=== PATIENT | female | born 1995 | race African-American/Black ===

== ENCOUNTER 2018-03-15 00:32 | Emergency (ER) | payer MEDICAID ==
--- NOTE | 2018-03-15 00:55 | ED Physician Documentation ---
PD HPI ABD PAIN - Stated complaint Stated Complaint: ABD PAIN/NAUSEA - Chief complaint Chief Complaint: Abd Pain - History obtained from History obtained from: Patient - History of Present Illness Timing - onset: How many days ago (3-4 days of lower abd cramping pains, with nausea about the past week. Today with worse nausea and also vomiting. Symptoms similar to other times of early . Has had 4 miscarriages, so is concerned about that. Had positive test at home today.) Timing - duration: Days Timing - details: Gradual onset, Waxing and waning Quality: Cramping, Aching, Pain Location: Suprapubic, LLQ Radiation: Lower back Improved by: No: Eating Worsened by: No: Eating Associated symptoms: Nausea, Vomiting, Loss of appetite. No: Fever, Diarrhea, Constipation, Dysuria, Vaginal bleeding, Vaginal dc Similar symptoms before: Diagnosis (early pregnancies.) Recently seen: Not recently seen Review of Systems Constitutional: denies: Fever, Chills, Myalgias Nose: denies: Rhinorrhea / runny nose, Congestion Throat: denies: Sore throat Respiratory: denies: Cough GI: reports: Abdominal Pain, Nausea, Vomiting. denies: Abdominal Swelling, Constipation, Diarrhea, Bloody / black stool : reports: Missed period, Now EGA (5 weeks). denies: Dysuria, Frequency, Discharge Skin: denies: Rash, Lesions Neurologic: denies: Focal weakness, Numbness, Near syncope, Altered mental status PD PAST MEDICAL HISTORY - Past Medical History Past Medical History: No CLINICAL DATA MANAGEMENT DIRECTOR: Miscarriage(s) (4 prior ones) - Past Surgical History Past Surgical History: Yes /CLINICAL DATA MANAGEMENT DIRECTOR: section - Present Medications Home Medications: Ambulatory Orders Medication Instructions Recorded Confirmed Ondansetron Odt [Zofran] 4 mg TL Q6H PRN #15 tablet 03/15/18 - Allergies Allergies/Adverse Reactions: Allergies Allergy/AdvReac Type Severity Reaction Status Date / Time No Known Drug Allergies Allergy Verified 03/15/18 01:28 - Social History Does the pt smoke?: Yes Smoking Status: Current every day smoker Does the pt drink ETOH?: No Does the pt have substance abuse?: No - Immunizations Immunizations are current?: Yes - POLST Patient has POLST: No PD ED PE NORMAL - Vitals Vital signs reviewed: Yes - General General: Alert and oriented X 3, No acute distress, Well developed/nourished - Neck Neck: Supple, no meningeal sign, No adenopathy - Cardiac Cardiac: RRR, No murmur - Respiratory Respiratory: Clear bilaterally - Abdomen Abdomen: Normal bowel sounds, Soft, Non distended, No organomegaly, Other (some tenderness without guarding nor peritoneal signs in suprapubic and LLQ areas. ) - Female Female : Deferred - Rectal Rectal: Deferred - Back Back: No CVA TTP - Derm Derm: Normal color, Warm and dry - Extremities Extremities: No deformity, No tenderness to palpate, Normal ROM s pain - Neuro Neuro: Alert and oriented X 3, No motor deficit, Normal speech Results - Vitals Vitals: Vital Signs - 24 hr 03/15/18 03/15/18 00:41 02:50 Temperature 36.4 C L 36.5 C Heart Rate 82 77 Respiratory 16 16 Rate Blood Pressure 133/64 H 111/73 O2 Saturation 97 99 Oxygen O2 Source Room air - Labs Labs: Laboratory Tests 03/15/18 03/15/18 03/15/18 00:45 00:45 01:15 WBC 6.0 RBC 4.33 Hgb 13.2 Hct 38.7 MCV 89.4 MCH 30.5 MCHC 34.1 RDW 12.8 Plt Count 221 MPV 8.1 Neut # (Auto) 2.9 Lymph # (Auto) 2.4 [place] # (Auto) 0.4 Eos # (Auto) 0.2 Baso # (Auto) 0.0 Absolute Nucleated RBC 0.00 Nucleated RBC % 0.1 HCG, Quant Urine Color YELLOW Urine Clarity CLEAR Urine pH 6.0 Ur Specific [place] 1.025 1.025 Urine Protein NEGATIVE Urine Glucose (UA) NEGATIVE Urine Ketones TRACE Urine Occult Blood TRACE-INTA Urine Nitrite NEGATIVE Urine Bilirubin NEGATIVE Urine Urobilinogen 1 (NORMAL) Ur Leukocyte Esterase NEGATIVE Ur Microscopic Review NOT INDICATED Urine Culture Comments NOT INDICATED Urine HCG, Qual POSITIVE 03/15/18 01:15 WBC RBC Hgb Hct MCV MCH MCHC RDW Plt Count MPV Neut # (Auto) Lymph # (Auto) [place] # (Auto) Eos # (Auto) Baso # (Auto) Absolute Nucleated RBC Nucleated RBC % HCG, Quant 904.06 Urine Color Urine Clarity Urine pH Ur Specific [place] Urine Protein Urine Glucose (UA) Urine Ketones Urine Occult Blood Urine Nitrite Urine Bilirubin Urine Urobilinogen Ur Leukocyte Esterase Ur Microscopic Review Urine Culture Comments Urine HCG, Qual - Rads (name of study) OB U/S Radiology: Prelim report reviewed (no intrauterine nor extrauterine gestation seen. CL cyst on left. Trace free fluid. ) PD MEDICAL DECISION MAKING - ED course Complexity details: reviewed results (no gestation seen, but quant low at 900s, so could still be normal but too early to detect. She is new to area so no PMD as yet. Given number for CLINICAL DATA MANAGEMENT DIRECTOR/OB clinic but she might need to just return to ER to get repeated HCG and then U/S at proper timing. ), considered differential (early with lower abd pains; concern for position and condition of the . ), d/w patient - Sepsis Event Vital Signs: Vital Signs - 24 hr 03/15/18 03/15/18 00:41 02:50 Temperature 36.4 C L 36.5 C Heart Rate 82 77 Respiratory 16 16 Rate Blood Pressure 133/64 H 111/73 O2 Saturation 97 99 Oxygen O2 Source Room air Departure - Departure Disposition: 01 Home, Self Care Clinical Impression: Early stage of , Nausea, Pelvic cramping Condition: Stable Record reviewed to determine appropriate education?: Yes Instructions: ED Abdominal Pain Rule Out Ectopic Follow-Up: [facility] [Provider Group] Prescriptions: Ondansetron Odt [Zofran] 4 mg TL Q6H PRN #15 tablet PRN Reason: Nausea / Vomiting Comments: Drink lots of fluids. Ondansetron if needed for nausea. Tylenol if needed for pains. Follow-up with [facility] office in several days, call tomorrow for an appointment. Return to the ER if worsening symptoms or if unable to get a follow-up with ST[facility] PREPAR[facility] TECHNICIAN within 4-5 days. Discharge Date/Time: 03/15/18 03:27
[2018-03-15 00:58] LABS: BILIRUBIN,URINE NEGATIVE (NEGATIVE); GLUCOSE, URINE (UA) NEGATIVE (NEGATIVE); KETONES,URINE (UA) TRACE mg/dL (NEGATIVE); LEUKOCYTE ESTERASE, URINE NEGATIVE (NEGATIVE); NITRITE,URINE NEGATIVE (NEGATIVE); OCCULT BLOOD,URINE TRACE-INTA (NEGATIVE); PROTEIN,URINE NEGATIVE (NEGATIVE); UROBILINOGEN,URINE 1 (NORMAL) E.U./dL (NORMAL)
[2018-03-15 00:59] LABS: CLARITY,URINE CLEAR (CLEAR); HCG UR QUAL POSITIVE
[2018-03-15] MEDS ORDERED: SODIUM CHLORIDE 0.9% 1,000 ML IV ONE (01:10)
[2018-03-15] MEDS ORDERED: ONDANSETRON 4 MG/2 ML VIAL IVP STA (01:10)
[2018-03-15 01:30] LABS: BASOPHILS % (AUTO) 0.6 %; EOSINOPHILS # (AUTO) 0.2 10^3/uL (0.0-0.7); EOSINOPHILS % (AUTO) 3.3 %; HGB - HEMOGLOBIN 13.2 g/dL (12.0-16.0); LYMPHOCYTES # (AUTO) 2.4 10^3/uL (1.5-3.5); LYMPHOCYTES % (AUTO) 40.8 %; MEAN CORPUSCULAR HEMOGLOBIN 30.5 pg (27.0-31.0); MEAN CORPUSCULAR HGB CONC 34.1 g/dL (32.0-36.0); MEAN CORPUSCULAR VOLUME 89.4 fL (81.0-99.0); MEAN PLATELET VOLUME 8.1 fL (7.9-10.8); MONOCYTES # (AUTO) 0.4 10^3/uL (0.0-1.0); MONOCYTES % (AUTO) 6.6 %; NEUTROPHILS # (AUTO) 2.9 10^3/uL (1.5-6.6); NEUTROPHILS % (AUTO) 48.7 %; PLT - PLATELET COUNT 221 10^3/uL (130-450); RED BLOOD COUNT 4.33 10^6/uL (4.20-5.40); RED CELL DISTRIBUTION WIDTH 12.8 % (12.0-15.0)
--- NOTE | 2018-03-15 02:53 | Ultrasound Report ---
Procedure Date: 03/15/2018 Accession Number: [id number] / [id number] Procedure: US - OB First Trimester CPT Code: FULL RESULT: EXAM: FIRST TRIMESTER OBSTETRIC ULTRASOUND (Less than 11 weeks) EXAM DATE: 03/15/2018 01:37 AM. CLINICAL HISTORY: Lower abd pain/early . LMP: 02/06/2018. COMPARISONS: None. TECHNIQUE: Transabdominal and transvaginal ultrasound examination with static image documentation. CLINICAL DATES: EGA 5 weeks 2 days with JOHNNIE 11/13/2018 based on LMP. ASSESSMENT: Gestational Sac: Not seen. Embryo: Not seen. Cardiac activity: Not seen. Yolk sac: Not seen. Amniotic fluid: Not seen. Early placenta: Not seen. Other: None. MATERNAL STRUCTURES: Uterus: Anteverted. Unremarkable. Cervix: Closed. Right Ovary/Adnexa: Unremarkable. The ovary measures 3.5 x 1.7 x 2.3 cm, volume 7.2 cc. Left Ovary/Adnexa: Corpus luteum measuring 2.3 x 2.4 x 1.8 cm. The ovary measures 2.4 x 2.1 x 2.6 cm, volume 6.9 cc. Free Fluid: Small amount. Other: None. IMPRESSION: 1. No intrauterine or extrauterine gestation identified. 2. Corpus luteum on the left ovary. 3. Small amount of free fluid. 4. Recommend correlation with quantitative serum beta hCG level. KLEVER
[2018-03-15 03:05] VITALS: BP 111/73
[2018-03-15] MEDS ORDERED: ONDANSETRON ODT 4 MG Prepack 2 TL PRN (03:20)
== END 2018-03-15 03:27 | disposition home or self-care (01) ==
LOC: ED 00:32
DX: O26.891 Other specified pregnancy related conditions, first trimester (principal); R10.2 Pelvic and perineal pain; R11.0 Nausea; O99.331 Smoking (tobacco) complicating pregnancy, first trimester; Z3A.01 Less than 8 weeks gestation of pregnancy
CPT/HCPCS: 36415; 76801; 76817; 81001; 81003; 81025; 84144; 84702; 84703; 85025; 87086; 96361; 96374; 99283

== ENCOUNTER 2018-03-18 23:59 | Emergency (ER) | payer MEDICAID ==
--- NOTE | 2018-03-19 00:13 | ED Physician Documentation ---
History of Present Illness - Stated complaint Stated Complaint: ABD PAIN,6W - Chief complaint Chief Complaint: Abd Pain - Additonal information Additional information: 22-year-old female presents to the emergency department with complaints of increasing lower abdominal cramping. The patient reports being and recently had an ultrasound which did not show any intrauterine secondary to a very low beta hCG. The patient reports generalized lower abdominal cramping and denies any vaginal bleeding, vaginal discharge or dysuria. The patient also reports feeling nauseated. Symptoms are described as moderate. The patient denies any focal area of pain. No other associated symptoms. No relieving factors Review of Systems Constitutional: denies: Fever, Chills Eyes: denies: Discharge Ears: denies: Ear pain Nose: denies: Rhinorrhea / runny nose Throat: denies: Sore throat Cardiac: denies: Chest pain / pressure Respiratory: denies: Dyspnea GI: reports: Abdominal Pain : denies: Dysuria, Hematuria, Vaginal bleeding Skin: denies: Rash Musculoskeletal: denies: Neck pain Neurologic: denies: Generalized weakness Immunocompromised: denies: Chemotherapy PD PAST MEDICAL HISTORY - Past Medical History COSTUME DIRECTOR: Miscarriage(s) (4 prior ones) - Past Surgical History Past Surgical History: Yes /COSTUME DIRECTOR: section - Present Medications Home Medications: Ambulatory Orders Medication Instructions Recorded Confirmed Ondansetron Odt [Zofran] 4 mg TL Q6H PRN #15 tablet 03/15/18 03/19/18 Metoclopramide [Reglan] 10 mg PO Q6H PRN #30 tablet 03/19/18 - Allergies Allergies/Adverse Reactions: Allergies Allergy/AdvReac Type Severity Reaction Status Date / Time No Known Drug Allergies Allergy Verified 03/19/18 00:07 - Social History Does the pt smoke?: Yes Smoking Status: Current every day smoker Does the pt drink ETOH?: No Does the pt have substance abuse?: No - Immunizations Immunizations are current?: Yes - POLST Patient has POLST: No PD ED PE NORMAL - General General: Alert and oriented X 3, No acute distress - HEENT HEENT: Atraumatic, PERRL, EOMI, Ears normal - Neck Neck: Supple, no meningeal sign - Cardiac Cardiac: RRR - Respiratory Respiratory: No respiratory distress - Abdomen Abdomen: Soft, Non distended. No: Non tender (The patient has generalized lower abdominal tenderness, there is no rebound or peritoneal signs) - Back Back: No CVA TTP - Derm Derm: Normal color - Extremities Extremities: No deformity - Neuro Neuro: Alert and oriented X 3, Normal speech - Psych Psych: Normal mood Results - Vitals Vitals: Vital Signs - 24 hr 03/19/18 00:05 Temperature 37.2 C Heart Rate 82 Respiratory 18 Rate Blood Pressure 121/89 H O2 Saturation 98 Oxygen O2 Source Room air - Labs Labs: Laboratory Tests 03/19/18 03/19/18 03/19/18 00:23 00:23 00:23 WBC 7.5 RBC 4.33 Hgb 13.1 Hct 38.0 MCV 87.9 MCH 30.3 MCHC 34.5 RDW 12.8 Plt Count 242 MPV 7.8 L Neut # (Auto) 3.5 Lymph # (Auto) 3.0 [place] # (Auto) 0.5 Eos # (Auto) 0.4 Baso # (Auto) 0.1 Absolute Nucleated RBC 0.00 Nucleated RBC % 0.0 Sodium 132 L Potassium 3.9 Chloride 103 Carbon Dioxide 22 Anion Gap 7.0 BUN 12 Creatinine 0.6 Estimated GFR (MDRD) 149 Glucose 91 Calcium 9.5 Total Bilirubin 0.9 AST 22 ALT 21 Alkaline Phosphatase 132 H Total Protein 7.8 Albumin 4.1 Globulin 3.7 Albumin/Globulin Ratio 1.1 Lipase 26 HCG, Quant 5490.00 Urine Color Urine Clarity Urine pH Ur Specific [place] Urine Protein Urine Glucose (UA) Urine Ketones Urine Occult Blood Urine Nitrite Urine Bilirubin Urine Urobilinogen Ur Leukocyte Esterase Ur Microscopic Review Urine Culture Comments Blood Type Antibody Screen 03/19/18 03/19/18 00:23 01:55 WBC RBC Hgb Hct MCV MCH MCHC RDW Plt Count MPV Neut # (Auto) Lymph # (Auto) [place] # (Auto) Eos # (Auto) Baso # (Auto) Absolute Nucleated RBC Nucleated RBC % Sodium Potassium Chloride Carbon Dioxide Anion Gap BUN Creatinine Estimated GFR (MDRD) Glucose Calcium Total Bilirubin AST ALT Alkaline Phosphatase Total Protein Albumin Globulin Albumin/Globulin Ratio Lipase HCG, Quant Urine Color YELLOW Urine Clarity CLEAR Urine pH 6.0 Ur Specific [place] 1.025 Urine Protein NEGATIVE Urine Glucose (UA) NEGATIVE Urine Ketones NEGATIVE Urine Occult Blood TRACE-LYSE Urine Nitrite NEGATIVE Urine Bilirubin NEGATIVE Urine Urobilinogen 0.2 (NORMAL) Ur Leukocyte Esterase NEGATIVE Ur Microscopic Review NOT INDICATED Urine Culture Comments NOT INDICATED Blood Type O POSITIVE Antibody Screen NEGATIVE - Rads (name of study) Ultrasound first trimester Radiology: Final report received ( IMPRESSION: 1. Single intrauterine gestational sac at EGA 4 weeks 2 days with JOHNNIE 11/24/2018 based on mean sac diameter, which is discordant with clinical dates. Embryo and yolk sac not seen. 2. Assigned dating is JOHNNIE 11/24/2018 based on current US.3. Small hemorrhage adjacent to the gestational sac. 4. Corpus luteum on the left ovary. Small amount of free fluid. 5. Recommend sonographic follow-up to confirm viable gestation.) PD MEDICAL DECISION MAKING - ED course ED course: The findings were discussed with the patient, on reevaluation the patient rests comfortably and appears appropriate for discharge home. I explained the importance of close follow-up with [facility] for a repeat ultrasound to assess the viability. The patient understands and agrees. I discussed warning signs and recommended returning to the emergency department immediately for worsening or any concerns. I also recommended pelvic rest secondary to the small hemorrhage adjacent to the gestational sac. - Sepsis Event Vital Signs: Vital Signs - 24 hr 03/19/18 00:05 Temperature 37.2 C Heart Rate 82 Respiratory 18 Rate Blood Pressure 121/89 H O2 Saturation 98 Oxygen O2 Source Room air Departure - Departure Disposition: 01 Home, Self Care Clinical Impression: Abdominal pain affecting Ovarian cyst Qualifiers: Laterality: unspecified laterality Qualified Code(s): N83.209 - Unspecified ovarian cyst, unspecified side Condition: Good Instructions: Cysts Ovarian, Preg 1st Trimester Follow-Up: Jamar Bassett MD [Provider Admit Priv/Credential] - Greg Mathews MD [Provider Admit Priv/Credential] - Prescriptions: Metoclopramide [Reglan] 10 mg PO Q6H PRN #30 tablet PRN Reason: Nausea / Vomiting Comments: Please follow-up with [facility] in 1 week for recheck. You will need a follow-up ultrasound to further access your . Please return to the emergency department immediately for worsening symptoms or any concerns
[2018-03-19 00:30] LABS: BASOPHILS # (AUTO) 0.1 10^3/uL (0.0-0.1); BASOPHILS % (AUTO) 1.1 %; EOSINOPHILS # (AUTO) 0.4 10^3/uL (0.0-0.7); EOSINOPHILS % (AUTO) 5.7 %; HGB - HEMOGLOBIN 13.1 g/dL (12.0-16.0); LYMPHOCYTES % (AUTO) 39.3 %; MEAN CORPUSCULAR HEMOGLOBIN 30.3 pg (27.0-31.0); MEAN CORPUSCULAR HGB CONC 34.5 g/dL (32.0-36.0); MEAN CORPUSCULAR VOLUME 87.9 fL (81.0-99.0); MEAN PLATELET VOLUME 7.8 fL (7.9-10.8); MONOCYTES # (AUTO) 0.5 10^3/uL (0.0-1.0); MONOCYTES % (AUTO) 6.7 %; NEUTROPHILS # (AUTO) 3.5 10^3/uL (1.5-6.6); NEUTROPHILS % (AUTO) 47.2 %; PLT - PLATELET COUNT 242 10^3/uL (130-450); RED BLOOD COUNT 4.33 10^6/uL (4.20-5.40); RED CELL DISTRIBUTION WIDTH 12.8 % (12.0-15.0); WHITE BLOOD COUNT 7.5 x10^3/uL (4.8-10.8)
[2018-03-19 00:56] LABS: ALBUMIN 4.1 g/dL (3.2-5.5); ALBUMIN/GLOBULIN RATIO 1.1 (1.0-2.2); BILIRUBIN,TOTAL 0.9 mg/dL (0.2-1.0); CALCIUM 9.5 mg/dL (8.5-10.3); CREATININE 0.6 mg/dL (0.4-1.0); TOTAL PROTEIN 7.8 g/dL (6.7-8.2)
--- NOTE | 2018-03-19 02:00 | Ultrasound Report ---
Procedure Date: 03/19/2018 Accession Number: [id number] / [id number] Procedure: US - OB First Trimester CPT Code: FULL RESULT: EXAM: FIRST TRIMESTER OBSTETRIC ULTRASOUND (Less than 11 weeks) EXAM DATE: 03/19/2018 12:40 AM. CLINICAL HISTORY: with pain. LMP: 02/06/2018. COMPARISONS: OB FIRST TRIMESTER 03/15/2018 1:37 AM. TECHNIQUE: Transabdominal and transvaginal ultrasound examination with static image documentation. CLINICAL DATES: EGA 5 weeks 5 days with JOHNNIE 11/13/2018 based on LMP. ASSESSMENT: Gestational Sac: Single intrauterine. Mean gestational sac diameter: 4.5 mm = 4 weeks 2 days. Embryo: CRL not seen. Cardiac activity: Not seen. Yolk sac: Not seen. Amniotic fluid: Not accurately assessed at this gestational age. Early placenta: Not visible at this gestational age. Other: Small hemorrhage adjacent to the gestational sac measuring 1.4 x 0.5 cm. MATERNAL STRUCTURES: Uterus: Anteverted/Retroverted. Unremarkable. Cervix: Closed. Right Ovary/Adnexa: Unremarkable. The ovary measures 3.1 x 1.6 x 2.1 cm, volume 5.3 cc. Left Ovary/Adnexa: Corpus luteum measuring 2.6 x 2.0 x 2.2 cm. The ovary measures 3.8 x 3.1 x 2.4 cm, volume 15 cc. Free Fluid: Small amount. Other: None. IMPRESSION: 1. Single intrauterine gestational sac at EGA 4 weeks 2 days with JOHNNIE 11/24/2018 based on mean sac diameter, which is discordant with clinical dates. Embryo and yolk sac not seen. 2. Assigned dating is JOHNNIE 11/24/2018 based on current US. 3. Small hemorrhage adjacent to the gestational sac. 4. Corpus luteum on the left ovary. Small amount of free fluid. 5. Recommend sonographic follow-up to confirm viable gestation. RADIA
[2018-03-19 02:03] LABS: BILIRUBIN,URINE NEGATIVE (NEGATIVE); GLUCOSE, URINE (UA) NEGATIVE (NEGATIVE); KETONES,URINE (UA) NEGATIVE (NEGATIVE); LEUKOCYTE ESTERASE, URINE NEGATIVE (NEGATIVE); NITRITE,URINE NEGATIVE (NEGATIVE); OCCULT BLOOD,URINE TRACE-LYSE (NEGATIVE); PROTEIN,URINE NEGATIVE (NEGATIVE); UROBILINOGEN,URINE 0.2 (NORMAL) E.U./dL (NORMAL)
[2018-03-19 02:06] LABS: CLARITY,URINE CLEAR (CLEAR)
[2018-03-19 02:26] VITALS: BP 119/74
== END 2018-03-19 02:25 | disposition home or self-care (01) ==
LOC: ED 23:59
DX: O26.891 Other specified pregnancy related conditions, first trimester (principal); R10.30 Lower abdominal pain, unspecified; O34.81 Maternal care for other abnormalities of pelvic organs, first trimester; N83.209 Unspecified ovarian cyst, unspecified side; O99.331 Smoking (tobacco) complicating pregnancy, first trimester; Z3A.01 Less than 8 weeks gestation of pregnancy
CPT/HCPCS: 36415; 76801; 76817; 80053; 81001; 81003; 83690; 84702; 85025; 86850; 86900; 86901; 87086; 99283

== ENCOUNTER 2018-03-26 16:07 | Outpatient (CLI) | payer MEDICAID | END 2018-03-26 16:08 | disposition home or self-care (01) | LOC: LAB 16:07 | PROVIDERS: ATTEND Obstetrics & Gynecology | DX: Z32.01 Encounter for pregnancy test, result positive (principal) | CPT/HCPCS: 36415; 84702 ==

== ENCOUNTER 2018-03-28 15:03 | Outpatient (CLI) | payer MEDICAID | END 2018-03-28 15:04 | disposition home or self-care (01) | LOC: LAB.N 15:03 | PROVIDERS: ATTEND Obstetrics & Gynecology | DX: Z32.01 Encounter for pregnancy test, result positive (principal) | CPT/HCPCS: 36415; 84702 ==

== ENCOUNTER 2018-04-04 22:32 | Emergency (ER) | payer MEDICAID ==
[2018-04-04 22:58] LABS: BASOPHILS % (AUTO) 0.4 %; EOSINOPHILS # (AUTO) 0.2 10^3/uL (0.0-0.7); EOSINOPHILS % (AUTO) 2.2 %; HGB - HEMOGLOBIN 12.5 g/dL (12.0-16.0); LYMPHOCYTES # (AUTO) 2.3 10^3/uL (1.5-3.5); LYMPHOCYTES % (AUTO) 28.7 %; MEAN CORPUSCULAR HEMOGLOBIN 30.7 pg (27.0-31.0); MEAN CORPUSCULAR HGB CONC 34.7 g/dL (32.0-36.0); MEAN CORPUSCULAR VOLUME 88.7 fL (81.0-99.0); MEAN PLATELET VOLUME 7.8 fL (7.9-10.8); MONOCYTES # (AUTO) 0.5 10^3/uL (0.0-1.0); MONOCYTES % (AUTO) 5.9 %; NEUTROPHILS % (AUTO) 62.8 %; PLT - PLATELET COUNT 227 10^3/uL (130-450); RED BLOOD COUNT 4.07 10^6/uL (4.20-5.40); RED CELL DISTRIBUTION WIDTH 12.5 % (12.0-15.0); WHITE BLOOD COUNT 7.9 x10^3/uL (4.8-10.8)
[2018-04-04 23:09] LABS: ALBUMIN/GLOBULIN RATIO 1.1 (1.0-2.2); BILIRUBIN,TOTAL 0.6 mg/dL (0.2-1.0); CREATININE 0.6 mg/dL (0.4-1.0); TOTAL PROTEIN 7.7 g/dL (6.7-8.2)
--- NOTE | 2018-04-05 00:56 | Ultrasound Report ---
Reason: preg vag bleeding Procedure Date: 04/04/2018 Accession Number: [id number] / [id number] Procedure: US - OB First Trimester CPT Code: FULL RESULT: EXAM: FIRST TRIMESTER OBSTETRIC ULTRASOUND (Less than 11 weeks) EXAM DATE: 04/05/2018 12:10 AM. CLINICAL HISTORY: Preg vag bleeding. LMP: 02/06/2018. COMPARISONS: 03/19/2018. TECHNIQUE: Transabdominal ultrasound examination with static image documentation. CLINICAL DATES: EGA 8 weeks 2 days with JOHNNIE 11/13/2018 based on LMP. ASSESSMENT: Gestational Sac: Single intrauterine. Mean gestational sac diameter: 24 mm = 7 weeks 0 days. Embryo: CRL (crown-rump length) 10.2 mm = 7 weeks 1 day. Cardiac activity: 137 beats per minute. Yolk sac: 4 mm. Amniotic fluid: Not accurately assessed at this gestational age. Early placenta: Not visible at this gestational age. Other: No perigestational fluid collection demonstrated. MATERNAL STRUCTURES: Uterus: Anteverted. Unremarkable. Cervix: Closed. Right Ovary/Adnexa: Unremarkable. The ovary measures 3.6 x 3.5 x 2.1 cm, volume 14 cc. Left Ovary/Adnexa: Corpus luteum measuring 2.6 cm. The ovary measures 3.5 x 3.4 x 2.5 cm, volume 16 cc. Free Fluid: None. Other: None. IMPRESSION: 1. Single viable intrauterine at EGA 7 weeks 1 day with JOHNNIE 11/21/2018 based on crown-rump length, which is 8 days smaller than expected by clinical dates. 2. Assigned dating is JOHNNIE 11/21/2018 based on current ultrasound. 3. No perigestational hemorrhage. RADIA
[2018-04-05 01:14] LABS: BILIRUBIN,URINE NEGATIVE (NEGATIVE); GLUCOSE, URINE (UA) NEGATIVE (NEGATIVE); KETONES,URINE (UA) NEGATIVE (NEGATIVE); LEUKOCYTE ESTERASE, URINE NEGATIVE (NEGATIVE); NITRITE,URINE NEGATIVE (NEGATIVE); OCCULT BLOOD,URINE LARGE (NEGATIVE); PROTEIN,URINE NEGATIVE (NEGATIVE); UROBILINOGEN,URINE 0.2 (NORMAL) E.U./dL (NORMAL)
[2018-04-05 01:20] LABS: CLARITY,URINE CLEAR (CLEAR)
[2018-04-05 01:21] LABS: HCG UR QUAL POSITIVE
[2018-04-05 01:25] LABS: BACTERIA,URINE Few /HPF (None Seen); RBC,URINE 0-5 /HPF (0-5); SQUAMOUS EPITHELIAL CELL,UR MOD Squamous (<= Few)
--- NOTE | 2018-04-05 01:33 | ED Physician Documentation ---
PD HPI FEMALE - Stated complaint Stated Complaint: CRAMPING/BLEEDING LMP 02/06/18 - Chief complaint Chief Complaint: Abd Pain - History obtained from History obtained from: Patient - History of Present Illness Timing - onset: Today Timing - details: Abrupt onset, Now resolved Associated symptoms: Vaginal bleeding Contributing factors: OB-VICE PRESIDENT OF CONTRACTS History: G (7), P (2) Similar symptoms before: Work up / diagnostics Recently seen: Not recently seen - Additional information Additional information: Patient is a approximately 7 weeks by dates who is presenting to the emergency department for vaginal bleeding. patient's symptoms started earlier today. she filled a pad at that time. the bleeding has slowed down but due to the prior miscarriages patient was worried. Patient denies any trauma but reports that the only thing that was different was that she was cleaning her house yesterday. Review of Systems Ten Systems: 10 systems reviewed and negative : reports: Vaginal bleeding. denies: Dysuria, Frequency PD PAST MEDICAL HISTORY - Past Medical History Past Medical History: Yes VICE PRESIDENT OF CONTRACTS: Miscarriage(s) - Past Surgical History Past Surgical History: Yes /VICE PRESIDENT OF CONTRACTS: section - Present Medications Home Medications: Ambulatory Orders Medication Instructions Recorded Confirmed Ondansetron Odt [Zofran] 4 mg TL Q6H PRN #15 tablet 03/15/18 03/19/18 Metoclopramide [Reglan] 10 mg PO Q6H PRN #30 tablet 03/19/18 - Allergies Allergies/Adverse Reactions: Allergies Allergy/AdvReac Type Severity Reaction Status Date / Time No Known Drug Allergies Allergy Verified 04/04/18 22:44 - Social History Does the pt smoke?: Yes Smoking Status: Current every day smoker Does the pt drink ETOH?: No Does the pt have substance abuse?: No - Immunizations Immunizations are current?: Yes - POLST Patient has POLST: No PD ED PE NORMAL - Vitals Vital signs reviewed: Yes - General General: Alert and oriented X 3 - HEENT HEENT: Atraumatic - Cardiac Cardiac: RRR - Respiratory Respiratory: No respiratory distress - Abdomen Abdomen: Soft - Derm Derm: Normal color, Warm and dry - Extremities Extremities: No deformity - Neuro Neuro: Alert and oriented X 3 Eye Opening: Spontaneous PD ED PE EXPANDED - General General: Alert, Anxious Results - Vitals Vitals: Vital Signs - 24 hr 04/04/18 22:41 Temperature 36.8 C Heart Rate 82 Respiratory 18 Rate Blood Pressure 134/81 H O2 Saturation 100 Oxygen O2 Source Room air - Labs Labs: Laboratory Tests 04/04/18 04/04/18 04/04/18 22:45 22:54 22:54 WBC 7.9 RBC 4.07 L Hgb 12.5 Hct 36.1 L MCV 88.7 MCH 30.7 MCHC 34.7 RDW 12.5 Plt Count 227 MPV 7.8 L Neut # (Auto) 5.0 Lymph # (Auto) 2.3 [place] # (Auto) 0.5 Eos # (Auto) 0.2 Baso # (Auto) 0.0 Absolute Nucleated RBC 0.00 Nucleated RBC % 0.0 Sodium 137 Potassium 3.9 Chloride 106 Carbon Dioxide 24 Anion Gap 7.0 BUN 12 Creatinine 0.6 Estimated GFR (MDRD) 149 Glucose 97 Calcium 9.0 Total Bilirubin 0.6 AST 15 ALT 14 Alkaline Phosphatase 116 Total Protein 7.7 Albumin 4.0 Globulin 3.7 Albumin/Globulin Ratio 1.1 Lipase 29 HCG, Quant 22347.00 Urine Color Urine Clarity Urine pH Ur Specific [place] Urine Protein Urine Glucose (UA) Urine Ketones Urine Occult Blood Urine Nitrite Urine Bilirubin Urine Urobilinogen Ur Leukocyte Esterase Urine RBC Urine WBC Ur Squamous Epith Cells Urine Bacteria Ur Microscopic Review Urine Culture Comments Urine HCG, Qual Blood Type 04/04/18 04/05/18 04/05/18 23:40 00:00 00:00 WBC RBC Hgb Hct MCV MCH MCHC RDW Plt Count MPV Neut # (Auto) Lymph # (Auto) [place] # (Auto) Eos # (Auto) Baso # (Auto) Absolute Nucleated RBC Nucleated RBC % Sodium Potassium Chloride Carbon Dioxide Anion Gap BUN Creatinine Estimated GFR (MDRD) Glucose Calcium Total Bilirubin AST ALT Alkaline Phosphatase Total Protein Albumin Globulin Albumin/Globulin Ratio Lipase HCG, Quant Urine Color YELLOW Urine Clarity CLEAR Urine pH 6.0 Ur Specific [place] >=1.030 H >1.030 Urine Protein NEGATIVE Urine Glucose (UA) NEGATIVE Urine Ketones NEGATIVE Urine Occult Blood LARGE H Urine Nitrite NEGATIVE Urine Bilirubin NEGATIVE Urine Urobilinogen 0.2 (NORMAL) Ur Leukocyte Esterase NEGATIVE Urine RBC 0-5 Urine WBC 0-3 Ur Squamous Epith Cells MOD Squamous H Urine Bacteria Few Ur Microscopic Review INDICATED Urine Culture Comments NOT INDICATED Urine HCG, Qual POSITIVE Blood Type O POSITIVE - Rads (name of study) pelvic ultrasound Radiology: Final report received (viable iup approximately 7 weeks) PD MEDICAL DECISION MAKING - ED course Complexity details: reviewed old records, reviewed results, re-evaluated patient , considered differential, d/w patient, d/w family ED course: Patient was seen and examined at bedside. labs were drawn and imaging was ordered. When patient returned from ultrasound the results were reviewed. there was a viable IUP. Patient's blood type was Rh positive. Patient was given detailed discharge and follow up instructions and was stable for outpatient follow up. - Sepsis Event Vital Signs: Vital Signs - 24 hr 04/04/18 22:41 Temperature 36.8 C Heart Rate 82 Respiratory 18 Rate Blood Pressure 134/81 H O2 Saturation 100 Oxygen O2 Source Room air Departure - Departure Disposition: 01 Home, Self Care Clinical Impression: Threatened in first trimester Condition: Good Instructions: ED Miscarriage Poss Follow-Up: primary,care provider [Other] - Within 1 week Comments: Your diagnostics today were within normal limits. there was a viable IUP with an expected due date of 11/21/18. You should follow up with your ob tomorrow for further evaluation. You should return to the emergency department for severe bleeding. You should avoid any heavy lifting or strenuous activity.
[2018-04-05 01:34] VITALS: BP 120/86
== END 2018-04-05 01:37 | disposition home or self-care (01) ==
LOC: ED 22:32
DX: O20.0 Threatened abortion (principal); O99.331 Smoking (tobacco) complicating pregnancy, first trimester; Z3A.01 Less than 8 weeks gestation of pregnancy
CPT/HCPCS: 36415; 76801; 80053; 81001; 81003; 81025; 83690; 84702; 85025; 86900; 86901; 87086; 99283

== ENCOUNTER 2018-04-08 12:18 | Outpatient (CLI) | payer MEDICAID ==
--- NOTE | 2018-04-08 17:08 | Ultrasound Report ---
Reason: ENTR FOR TEST, RESULT POSITIVE Procedure Date: 04/08/2018 Accession Number: [id number] / [id number] Procedure: US - OB First Trimester CPT Code: FULL RESULT: EXAM: FIRST TRIMESTER OBSTETRIC ULTRASOUND (Less than 11 weeks) EXAM DATE: 04/08/2018 01:33 PM. CLINICAL HISTORY: dating and viability. History of multiple miscarriages. Excessive cramping. LMP: 02/06/2018. COMPARISONS: 04/05/2018, 03/19/2018, 03/15/2018. TECHNIQUE: Transabdominal and transvaginal ultrasound examination with static image documentation. CLINICAL DATES: EGA 8 weeks 5 days with JOHNNIE 11/13/2018 based on LMP 04/09/2018. EGA 7 weeks 4 days with JOHNNIE 11/21/2018 based on first ultrasound dated 04/05/2018. EGA 7 weeks 6 days with JOHNNIE 11/19/2018 based on current ultrasound. ASSESSMENT: Gestational Sac: Single intrauterine. Mean gestational sac diameter: 26 mm = 7 weeks 2 days. Embryo: CRL (crown-rump length) 15 mm = 7 weeks 6 days. Cardiac activity: 148 beats per minute. Yolk sac: 2 mm. Amniotic fluid: Not accurately assessed at this gestational age. Early placenta: Not visible at this gestational age. Other: No perigestational fluid collection demonstrated. MATERNAL STRUCTURES: Uterus: Anteverted. Unremarkable. Cervix: Closed. Right Ovary/Adnexa: Unremarkable. The ovary measures 2.9 x 1.2 x 2.6 cm, volume 4.7 cc. Left Ovary/Adnexa: The ovary measures 4.6 x 2.4 x 3.4 cm, volume 19.6 cc. Contains a corpus luteum cyst measuring 1.7 cm. Free Fluid: Trace anechoic free fluid in the posterior cul-de-sac. Other: None. IMPRESSION: 1. Single viable intrauterine at EGA 7 weeks 6 days with JOHNNIE 11/19/2018 based on crown-rump length, which is concordant with assigned dating based on prior ultrasound. 2. Assigned dating is JOHNNIE 11/21/2018 based on prior ultrasound dated 04/05/2018. RADIA
== END 2018-04-08 12:19 | disposition home or self-care (01) ==
LOC: DI 12:18
PROVIDERS: ATTEND Obstetrics & Gynecology
DX: Z32.01 Encounter for pregnancy test, result positive (principal); Z3A.01 Less than 8 weeks gestation of pregnancy
CPT/HCPCS: 76801

== ENCOUNTER 2018-04-24 19:11 | Emergency (ER) | payer MEDICAID ==
[2018-04-24 19:28] VITALS: BP 120/83
[2018-04-24] MEDS ORDERED: ACETAMINOPHEN 500 MG TABLET PO STA (21:33)
--- NOTE | 2018-04-24 21:40 | ED Physician Documentation ---
PD HPI URI - Stated complaint Stated Complaint: RUNNY NOSE/CHILLS/BODY ACHES/9 WKS PREG - Chief complaint Chief Complaint: Heent - History obtained from History obtained from: Patient - History of Present Illness Timing - onset: Today Timing duration: Days (1) Timing details: Gradual onset Severity Comments: mild Associated symptoms: Chills, Nasal congestion, Sinus pain, Sore throat, Other (body aches) Improves by: Other (no attempts at symptom management) Similar symptoms before: No diagnosis Recently seen: Not recently seen Review of Systems Constitutional: reports: Chills, Myalgias, Fatigue Eyes: denies: Loss of vision Ears: denies: Loss of hearing Nose: reports: Congestion Throat: reports: Sore throat Cardiac: denies: Chest pain / pressure Respiratory: reports: Cough GI: denies: Abdominal Pain : denies: Vaginal bleeding Skin: denies: Rash Musculoskeletal: denies: Neck pain Neurologic: denies: Focal weakness Immunocompromised: denies: Chemotherapy PD PAST MEDICAL HISTORY - Past Medical History Past Medical History: Yes Neuro: Migraines ACCURACY EXPERT: Miscarriage(s) Psych: Depression, Anxiety - Past Surgical History Past Surgical History: Yes General: Hiatal hernia repair /ACCURACY EXPERT: section - Present Medications Home Medications: Ambulatory Orders Medication Instructions Recorded Confirmed Ondansetron Odt [Zofran] 4 mg TL Q6H PRN #15 tablet 03/15/18 03/19/18 Metoclopramide [Reglan] 10 mg PO Q6H PRN #30 tablet 03/19/18 - Allergies Allergies/Adverse Reactions: Allergies Allergy/AdvReac Type Severity Reaction Status Date / Time No Known Drug Allergies Allergy Verified 04/04/18 22:44 - Social History Does the pt smoke?: Yes Smoking Status: Current every day smoker Does the pt drink ETOH?: No Does the pt have substance abuse?: No - Immunizations Immunizations are current?: Yes - POLST Patient has POLST: No PD ED PE NORMAL - General General: Alert and oriented X 3, No acute distress - HEENT HEENT: Atraumatic, PERRL, EOMI, Ears normal - Neck Neck: Supple, no meningeal sign - Cardiac Cardiac: RRR, Strong equal pulses - Respiratory Respiratory: No respiratory distress - Abdomen Abdomen: Soft, Non tender, Non distended - Derm Derm: Normal color - Extremities Extremities: No deformity, No edema - Neuro Neuro: Alert and oriented X 3, Normal speech - Psych Psych: Normal affect Results - Vitals Vitals: Vital Signs - 24 hr 18 04/24/18 19:23 20:54 Temperature 37.0 C 99 C H Heart Rate 99 89 Respiratory 16 16 Rate Blood Pressure 120/83 H O2 Saturation 98 98 Oxygen O2 Source Room air PD MEDICAL DECISION MAKING - ED course ED course: The patient's symptoms are consistent with a viral upper respiratory tract infection. The patient is currently 9 weeks and I recommended using Tylenol and having plenty of hydration. The patient has no symptoms related to her no lower abdominal cramping or vaginal bleeding so no further workup is needed regarding her in the emergency department. The patient appears appropriate for discharge and ongoing outpatient management. I discussed warning signs and recommended returning to the emergency department immediately for worsening or any concerns - Sepsis Event Vital Signs: Vital Signs - 24 hr 18 04/24/18 19:23 20:54 Temperature 37.0 C 99 C H Heart Rate 99 89 Respiratory 16 16 Rate Blood Pressure 120/83 H O2 Saturation 98 98 Oxygen O2 Source Room air Departure - Departure Disposition: 01 Home, Self Care Clinical Impression: URI, acute Condition: Good Instructions: ED URI Viral Comments: Please follow-up with primary care for recheck and reevaluation. Please return to the emergency department immediately for worsening symptoms or any concerns
== END 2018-04-24 21:48 | disposition home or self-care (01) ==
LOC: ED 19:11
DX: O99.511 Diseases of the respiratory system complicating pregnancy, first trimester (principal); J06.9 Acute upper respiratory infection, unspecified; B34.9 Viral infection, unspecified; O99.331 Smoking (tobacco) complicating pregnancy, first trimester; Z3A.09 9 weeks gestation of pregnancy
CPT/HCPCS: 99283; A9270

== ENCOUNTER 2018-05-08 08:00 | Outpatient (CLI) | payer MEDICAID ==
[2018-05-08 14:56] LABS: MUDS CUTOFF CONCENTRATIONS CUTOFF CONC BELOW:
[2018-05-08 15:50] LABS: AMPHETAMINE SCREEN,URINE NEGATIVE (NEGATIVE); BENZODIAZEPINES SCREEN, URINE NEGATIVE (NEGATIVE); COCAINE SCREEN URINE NEGATIVE (NEGATIVE); METHADONE SCREEN, URINE NEGATIVE (NEGATIVE); METHAMPHETAMINES SCREEN, URINE NEGATIVE (NEGATIVE); OPIATE SCREEN, URINE NEGATIVE (NEGATIVE); OXYCODONE SCREEN, URINE NEGATIVE (NEGATIVE); TRICYCLIC ANTIDEPRESSANT,URINE NEGATIVE (NEGATIVE)
[2018-05-08 15:51] LABS: PROPOXYPHENE SCREEN, URINE NEGATIVE (NEGATIVE)
== END 2018-05-08 08:01 | disposition home or self-care (01) ==
LOC: LAB.R 08:00
PROVIDERS: ATTEND Obstetrics & Gynecology
DX: Z34.81 Encounter for supervision of other normal pregnancy, first trimester (principal)
CPT/HCPCS: 80306

== ENCOUNTER 2018-05-15 12:19 | Outpatient (CLI) | payer MEDICAID ==
[2018-05-15 13:48] LABS: BASOPHILS # (AUTO) 0.1 10^3/uL (0.0-0.1); BASOPHILS % (AUTO) 0.7 %; EOSINOPHILS # (AUTO) 0.2 10^3/uL (0.0-0.7); EOSINOPHILS % (AUTO) 2.1 %; HGB - HEMOGLOBIN 12.3 g/dL (12.0-16.0); LYMPHOCYTES % (AUTO) 26.3 %; MEAN CORPUSCULAR HEMOGLOBIN 30.5 pg (27.0-31.0); MEAN CORPUSCULAR VOLUME 89.8 fL (81.0-99.0); MEAN PLATELET VOLUME 8.5 fL (7.9-10.8); MONOCYTES # (AUTO) 0.5 10^3/uL (0.0-1.0); NEUTROPHILS # (AUTO) 4.9 10^3/uL (1.5-6.6); NEUTROPHILS % (AUTO) 64.9 %; PLT - PLATELET COUNT 205 10^3/uL (130-450); RED BLOOD COUNT 4.03 10^6/uL (4.20-5.40); RED CELL DISTRIBUTION WIDTH 12.7 % (12.0-15.0); WHITE BLOOD COUNT 7.6 x10^3/uL (4.8-10.8)
[2018-05-15 13:54] LABS: BILIRUBIN,URINE NEGATIVE (NEGATIVE); GLUCOSE, URINE (UA) NEGATIVE (NEGATIVE); KETONES,URINE (UA) NEGATIVE (NEGATIVE); LEUKOCYTE ESTERASE, URINE NEGATIVE (NEGATIVE); NITRITE,URINE NEGATIVE (NEGATIVE); OCCULT BLOOD,URINE TRACE-INTA (NEGATIVE); PROTEIN,URINE NEGATIVE (NEGATIVE); UROBILINOGEN,URINE 0.2 (NORMAL) E.U./dL (NORMAL)
[2018-05-15 13:55] LABS: CLARITY,URINE CLEAR (CLEAR)
[2018-05-15 14:10] LABS: BACTERIA,URINE Few /HPF (None Seen); RBC,URINE None Seen /HPF (0-5); SQUAMOUS EPITHELIAL CELL,UR MANY Squamous (<= Few)
[2018-05-16 11:12] LABS: HEPATITIS B SURFACE ANTIGEN NON-REACTIVE (NON-REACTIVE)
[2018-05-16 12:52] LABS: HEPATITIS C ANTIBODY NON-REACTIVE (NON-REACTIVE)
[2018-05-16 14:37] LABS: HIV AG/AB 4TH GEN NON-REACTIVE (NON-REACTIVE)
== END 2018-05-15 12:20 | disposition home or self-care (01) ==
LOC: LAB 12:19
PROVIDERS: ATTEND Obstetrics & Gynecology
DX: O09.90 Supervision of high risk pregnancy, unspecified, unspecified trimester (principal); Z34.81 Encounter for supervision of other normal pregnancy, first trimester
CPT/HCPCS: 36415; 81001; 81220; 81243; 81599; 82728; 83021; 85025; 86592; 86762; 86803; 86850; 86900; 86901; 87340; 87389

== ENCOUNTER 2018-05-22 22:48 | Outpatient (CLI) | payer MEDICAID | END 2018-05-22 22:49 | disposition home or self-care (01) | LOC: LAB.R 22:48 | PROVIDERS: ATTEND Obstetrics & Gynecology | DX: N89.8 Other specified noninflammatory disorders of vagina (principal) | CPT/HCPCS: 87480; 87510; 87660 ==

== ENCOUNTER 2018-06-11 15:14 | Outpatient (CLI) | payer MEDICAID | END 2018-06-11 15:15 | disposition home or self-care (01) | LOC: LAB 15:14 | PROVIDERS: ATTEND Obstetrics & Gynecology | DX: Z13.79 Encounter for other screening for genetic and chromosomal anomalies (principal) | CPT/HCPCS: 36415; 81599; 82105; 82677; 84702; 86336 ==

== ENCOUNTER 2018-07-04 12:28 | Outpatient (CLI) | payer MEDICAID ==
--- NOTE | 2018-07-06 11:32 | Ultrasound Report ---
Reason: ENCTR FOR SCREENING Procedure Date: 07/04/2018 Accession Number: [id number] / [id number] Procedure: US - OB Detailed Eval CPT Code: FULL RESULT: EXAM: COMPLETE OBSTETRICAL ULTRASOUND EXAM DATE: 07/04/2018 02:42 PM. CLINICAL HISTORY: anatomic survey. COMPARISON: OB FIRST TRIMESTER 04/08/2018 12:55 PM OB FIRST TRIMESTER 04/05/2018 12:09 AM OB FIRST TRIMESTER 03/19/2018 12:40 AM OB FIRST TRIMESTER 03/15/2018 1:37 AM. TECHNIQUE: Real-time sonographic evaluation of the fetus performed by the bradder. Multiple fundraising sale representative static images were saved for review. DATING: Established EGA 20 weeks 0 days with JOHNNIE 11/21/2018 based on referring physician statement. EGA 21 weeks 1 day with JOHNNIE 11/13/2018 based on last menstrual period. EGA 20 weeks 2 days with JOHNNIE 11/19/2018 based on the current ultrasound. GENERAL EVALUATION [place] . Cardiac activity: 145 bpm. movement: Visualized. Presentation: Cephalic. Placenta: Anterior position. No evidence for previa. Umbilical cord: 3 vessel cord. Central placental cord origin. Amniotic fluid: DM 13.9 cm MVP 4.6 cm. BIOMETRY Bi-Parietal Diameter (BPD): 4.6 cm, 19 weeks 5 days Head Circumference (HC): 17.5 cm, 20 weeks 0 days Abdominal Circumference (AC): 15.9 cm, 21 weeks 0 days Femur Length (FL): 3.4 cm, 20 weeks 4 days Estimated Weight: 372 g, [place] 4 does not provide percentiles at this gestational age. ANATOMY The ventricular outflow tracts were not adequately visualized due to position. The intracranial structures, profile, face/nose/lips, spine, 4 chamber heart, stomach, abdominal wall and cord insertion, diaphragm, kidneys, bladder, and extremities were visualized and demonstrate no abnormality. MATERNAL STRUCTURES Uterus: Unremarkable. Cervix: Long and closed. Transabdominal length 4.0 cm. Right ovary/adnexa: Unremarkable. Left ovary/adnexa: Unremarkable. Free fluid: None. IMPRESSION: 1. [place] live intrauterine with gestational age 20 weeks 0 days based on referring physician. 2. Estimated weight is within expected limits for assigned dating. 3. Inadequate visualization of the left and right ventricular outflow tract. Otherwise, normal anatomic survey. No anatomic abnormalities are detected at this time. Recommend the patient return for completion anatomy survey for visualization of the right and left ventricular outflow tract. If follow-up of growth is desired at the same time, 2 weeks interval is ideal. Otherwise, sooner is adequate. ROLOA
== END 2018-07-04 12:29 | disposition home or self-care (01) ==
LOC: DI 12:28
PROVIDERS: ATTEND Obstetrics & Gynecology
DX: Z36.9 Encounter for antenatal screening, unspecified (principal)
CPT/HCPCS: 76811

== ENCOUNTER 2018-07-14 17:09 | Outpatient (CLI) | payer MEDICAID ==
[2018-07-14 17:56] LABS: BILIRUBIN,URINE NEGATIVE (NEGATIVE); GLUCOSE, URINE (UA) NEGATIVE (NEGATIVE); KETONES,URINE (UA) NEGATIVE (NEGATIVE); LEUKOCYTE ESTERASE, URINE TRACE (NEGATIVE); NITRITE,URINE NEGATIVE (NEGATIVE); OCCULT BLOOD,URINE SMALL (NEGATIVE); PROTEIN,URINE NEGATIVE (NEGATIVE); UROBILINOGEN,URINE 0.2 (NORMAL) E.U./dL (NORMAL)
[2018-07-14 17:58] LABS: CLARITY,URINE HAZY (CLEAR)
[2018-07-14 18:10] LABS: BACTERIA,URINE None Seen /HPF (None Seen); SQUAMOUS EPITHELIAL CELL,UR RARE Squamous (<= Few)
[2018-07-14 18:42] VITALS: BP 128/85
== END 2018-07-14 18:20 | disposition home or self-care (01) ==
LOC: WFO 17:09 → FBP 17:12 → WFO 18:20
PROVIDERS: ATTEND Obstetrics & Gynecology
DX: O46.92 Antepartum hemorrhage, unspecified, second trimester (principal); Z3A.21 21 weeks gestation of pregnancy
CPT/HCPCS: 81001; 81003; 87077; 87086; 87181; 99213

== ENCOUNTER 2018-07-15 08:52 | Outpatient (CLI) | payer MEDICAID ==
--- NOTE | 2018-07-15 14:12 | Ultrasound Report ---
Reason: VAGINAL SPOTTING Procedure Date: 07/15/2018 Accession Number: [id number] / [id number] Procedure: US - OB Limited CPT Code: FULL RESULT: EXAM: LIMITED OBSTETRICAL ULTRASOUND EXAM DATE: 07/15/2018 09:40 AM. CLINICAL HISTORY: VAGINAL SPOTTING. COMPARISON: OB DETAILED EVAL 07/04/2018 1:00 PM. TECHNIQUE: Real-time sonographic evaluation of the fetus performed by the contractor [employer] threshing. Multiple branch sales and service representative static images were saved for review. DATING: Established EGA 21 weeks 4 days with JOHNNIE 11/21/2018. GENERAL EVALUATION [place] . Cardiac activity: 148 bpm. movement: Visualized. Presentation: Cephalic. Placenta: Anterior position. No previa. Amniotic fluid: Normal. DM 17.3 cm. MVP 4.6 cm. ANATOMY No gross abnormality. MATERNAL STRUCTURES Cervix is closed measuring 3.8 cm IMPRESSION: 1. [place] live intrauterine with gestational age 21 weeks 4 days based on established JOHNNIE. 2. Cephalic presentation. heart rate 148 bpm. movement is visualized. 3. Anterior placenta without previa. Cervix measures 3.8 cm. DM is 17.3 cm, normal. No convincing ban-placental fluid collection. RADIA
== END 2018-07-15 08:53 | disposition home or self-care (01) ==
LOC: DI 08:52
PROVIDERS: ATTEND Obstetrics & Gynecology
DX: O46.92 Antepartum hemorrhage, unspecified, second trimester (principal)
CPT/HCPCS: 76815

== ENCOUNTER 2018-08-08 09:09 | Outpatient (CLI) | payer MEDICAID ==
[2018-08-08 10:30] LABS: BASOPHILS % (AUTO) 0.5 %; EOSINOPHILS # (AUTO) 0.3 10^3/uL (0.0-0.7); EOSINOPHILS % (AUTO) 3.2 %; HGB - HEMOGLOBIN 12.4 g/dL (12.0-16.0); LYMPHOCYTES # (AUTO) 1.8 10^3/uL (1.5-3.5); LYMPHOCYTES % (AUTO) 22.1 %; MEAN CORPUSCULAR HEMOGLOBIN 30.6 pg (27.0-31.0); MEAN CORPUSCULAR HGB CONC 34.4 g/dL (32.0-36.0); MEAN CORPUSCULAR VOLUME 88.9 fL (81.0-99.0); MEAN PLATELET VOLUME 8.1 fL (7.9-10.8); MONOCYTES # (AUTO) 0.5 10^3/uL (0.0-1.0); MONOCYTES % (AUTO) 6.3 %; NEUTROPHILS # (AUTO) 5.4 10^3/uL (1.5-6.6); NEUTROPHILS % (AUTO) 67.9 %; PLT - PLATELET COUNT 168 10^3/uL (130-450); RED BLOOD COUNT 4.04 10^6/uL (4.20-5.40); RED CELL DISTRIBUTION WIDTH 13.3 % (12.0-15.0); WHITE BLOOD COUNT 7.9 x10^3/uL (4.8-10.8)
== END 2018-08-08 09:10 | disposition home or self-care (01) ==
LOC: LAB 09:09
PROVIDERS: ATTEND Registered Nurse
DX: Z34.80 Encounter for supervision of other normal pregnancy, unspecified trimester (principal)
CPT/HCPCS: 36415; 82950; 85025; 86850

== ENCOUNTER 2018-08-15 08:00 | Outpatient (CLI) | payer MEDICAID | END 2018-08-15 23:59 | disposition home or self-care (01) | LOC: LAB.R 08:00 | PROVIDERS: ATTEND Obstetrics & Gynecology | DX: R10.2 Pelvic and perineal pain (principal); N89.8 Other specified noninflammatory disorders of vagina; Z11.3 Encounter for screening for infections with a predominantly sexual mode of transmission | CPT/HCPCS: 81001; 81003; 87480; 87491; 87510; 87591; 87660 ==

== ENCOUNTER 2018-08-21 13:05 | Outpatient (CLI) | payer MEDICAID ==
--- NOTE | 2018-08-21 15:03 | Ultrasound Report ---
Reason: CARE; OTHER, UNSPECIFIED TRIMESTER Procedure Date: 08/21/2018 Accession Number: [id number] / [id number] Procedure: US - OB F/U or Repeat CPT Code: FULL RESULT: EXAM: COMPLETE OBSTETRICAL ULTRASOUND EXAM DATE: 08/21/2018 02:11 PM. CLINICAL HISTORY: Completion of anatomic survey. Specifically RVOT and LVOT were not visualized on prior exam. COMPARISON: anatomic survey ultrasound 07/04/2018. TECHNIQUE: Real-time sonographic evaluation of the fetus performed by the evs attendant. Multiple underwriting sales representative static images were saved for review. Additional transvaginal imaging to more accurately evaluate cervical length/placental position/etc. DATING: Established EGA 26 weeks 6 days with JOHNNIE 11/21/2018 based on established EGA. GENERAL EVALUATION [place] . Cardiac activity: 144 bpm. movement: Visualized. Presentation: Cephalic. Placenta: Anterior position. No evidence for previa. Amniotic fluid: Subjectively normal. ANATOMY Despite extensive imaging, the right ventricular and left ventricular outflow tracts are not able to be imaged. MATERNAL STRUCTURES Uterus: Unremarkable. Cervix: Not well imaged. Right ovary/adnexa: Unremarkable. Left ovary/adnexa: Unremarkable. Free fluid: None. IMPRESSION: 1. Single viable intrauterine . 2. The purpose of this examination is to evaluate ventricular outflow tracts. Despite extensive imaging by the evs attendant, the outflow tracts are not demonstrated. May consider MFM consultation if clinically indicated. RADIA
== END 2018-08-21 13:06 | disposition home or self-care (01) ==
LOC: DI 13:05
PROVIDERS: ATTEND Registered Nurse
DX: Z34.83 Encounter for supervision of other normal pregnancy, third trimester (principal)
CPT/HCPCS: 76816

== ENCOUNTER 2018-10-29 14:41 | Outpatient (CLI) | payer OTHER, MEDICAID ==
[2018-10-30 14:16] LABS: HEPATITIS C ANTIBODY NON-REACTIVE (NON-REACTIVE)
[2018-10-30 17:22] LABS: HIV AG/AB 4TH GEN NON-REACTIVE (NON-REACTIVE)
[2018-10-31 11:57] LABS: HSV 2 IGG TYPE SPECIFIC AB <0.90 index
== END 2018-10-29 14:42 | disposition home or self-care (01) ==
LOC: LAB 14:41
PROVIDERS: ATTEND Obstetrics & Gynecology
DX: Z34.80 Encounter for supervision of other normal pregnancy, unspecified trimester (principal)
CPT/HCPCS: 36415; 81599; 86592; 86695; 86696; 86803; 87389

== ENCOUNTER 2018-10-30 08:00 | Outpatient (CLI) | payer OTHER, MEDICAID | END 2018-10-30 23:59 | disposition home or self-care (01) | LOC: LAB.R 08:00 | PROVIDERS: ATTEND Obstetrics & Gynecology | DX: Z34.80 Encounter for supervision of other normal pregnancy, unspecified trimester (principal) | CPT/HCPCS: 87491; 87591; 87797 ==

== ENCOUNTER 2018-10-31 15:02 | Outpatient (CLI) | payer OTHER, MEDICAID ==
[2018-10-31 15:34] VITALS: BP 119/73
--- NOTE | 2018-10-31 16:32 | PROVIDER PROGRESS NOTE ---
Subjective - Prog Note Date Prog Note Date: 10/31/18 Prog Note Time: 16:24 - Subjective Pt reports feeling: Improved Subjective: S: 22 y.o. 37 0/7 weeks with EDC 11/21/18 presents with single episode of small amount of bright red bleeding after wiping when getting up to go to BR. No coitus in approx. 72 hours. Had ABD US yesterday, per hx, that showed no accreta. OB hx notable for 2 prior C/S, first one got to 6 cm, second one a repeat. Scheduled for Repeat later this with Dr. Morales. Denies contractions, reports some increased vaginal d/c, no big gush, no other complaints. O: ABD SNT V/V: no lesions, no blood noted, small amount of old blood tinged brownish d/c, nitrazine/pool/valsalva all negative. Cx L/C ABD US by me at bedside shows fetus in breech presentation, appears jeff breech. DM 12.44 cm, anterior placenta. NST Reactive with perhaps one mild cxn in 30 min A/P: Single episode of light spotting, no active bleeding, cannot tell if ectocervical in nature. No bleeding at this time. Home with labor and SROM precautions. Keep appointment next week with provider. Instructed to notify provider of breech presentation on US today. All questions answered. Objective - Vital Signs/Intake & Output Vital Signs: Vital Signs x48h Temp Pulse Pulse Resp BP Pulse Ox 10/31/18 15:33 36.7 C 103 H 16 119/73 100 10/31/18 15:18 36.6 C 98 20 119/73 100
== END 2018-10-31 16:20 | disposition home or self-care (01) ==
LOC: WFO 15:02 → FBP 15:05 → WFO 16:20
PROVIDERS: ATTEND Obstetrics & Gynecology
DX: O26.853 Spotting complicating pregnancy, third trimester (principal); O32.1XX0 Maternal care for breech presentation, not applicable or unspecified; O34.219 Maternal care for unspecified type scar from previous cesarean delivery; Z3A.37 37 weeks gestation of pregnancy
CPT/HCPCS: 99214

== ENCOUNTER 2018-11-06 22:47 | Outpatient (CLI) | payer OTHER, MEDICAID ==
[2018-11-06] MEDS ORDERED: LACTATED RINGERS 500 ML IV ONE (23:25)
[2018-11-06] MEDS ORDERED: SODIUM CHLORIDE FLUSH 0.9% 10 ML SYRINGE IVP PRN (23:30)
[2018-11-06] MEDS ORDERED: LACTATED RINGERS 500 ML IV SCH (23:59)
[2018-11-07 00:33] VITALS: BP 112/60
[2018-11-07 00:41] LABS: BASOPHILS % (AUTO) 0.3 %; EOSINOPHILS # (AUTO) 0.1 10^3/uL (0.0-0.7); EOSINOPHILS % (AUTO) 1.5 %; HGB - HEMOGLOBIN 11.2 g/dL (12.0-16.0); LYMPHOCYTES # (AUTO) 2.2 10^3/uL (1.5-3.5); LYMPHOCYTES % (AUTO) 26.3 %; MEAN CORPUSCULAR HEMOGLOBIN 29.8 pg (27.0-31.0); MEAN CORPUSCULAR HGB CONC 34.3 g/dL (32.0-36.0); MEAN CORPUSCULAR VOLUME 86.8 fL (81.0-99.0); MEAN PLATELET VOLUME 8.7 fL (7.9-10.8); MONOCYTES # (AUTO) 0.6 10^3/uL (0.0-1.0); MONOCYTES % (AUTO) 6.7 %; NEUTROPHILS # (AUTO) 5.5 10^3/uL (1.5-6.6); NEUTROPHILS % (AUTO) 65.2 %; PLT - PLATELET COUNT 151 10^3/uL (130-450); RED BLOOD COUNT 3.78 10^6/uL (4.20-5.40); RED CELL DISTRIBUTION WIDTH 13.4 % (12.0-15.0); WHITE BLOOD COUNT 8.5 x10^3/uL (4.8-10.8)
[2018-11-07 00:45] LABS: CREATININE,URINE 56.2 mg/dL; PROTEIN/CREATININE RATIO,URINE 0.2 (<=0.2)
[2018-11-07 00:48] LABS: ALBUMIN 2.8 g/dL (3.2-5.5); ALBUMIN/GLOBULIN RATIO 0.7 (1.0-2.2); BILIRUBIN,TOTAL 0.7 mg/dL (0.2-1.0); CALCIUM 8.8 mg/dL (8.5-10.3); CREATININE 0.5 mg/dL (0.4-1.0); TOTAL PROTEIN 6.6 g/dL (6.7-8.2)
== END 2018-11-07 01:03 | disposition home or self-care (01) ==
LOC: WFO 22:47 → FBP 22:48 → WFO 11-07 01:03
PROVIDERS: ATTEND Obstetrics & Gynecology
DX: O47.1 False labor at or after 37 completed weeks of gestation (principal); R03.0 Elevated blood-pressure reading, without diagnosis of hypertension; Z3A.38 38 weeks gestation of pregnancy
CPT/HCPCS: 36415; 80053; 82570; 84156; 85025; 86850; 86900; 86901; 99213

== ENCOUNTER 2018-11-12 10:07 | Outpatient (CLI) | payer OTHER, MEDICAID | END 2018-11-12 10:08 | disposition home or self-care (01) | LOC: LAB 10:07 | PROVIDERS: ATTEND Obstetrics & Gynecology | DX: O34.219 Maternal care for unspecified type scar from previous cesarean delivery (principal) | CPT/HCPCS: 36415; 86850; 86900; 86901 ==

== ENCOUNTER 2018-11-14 05:01 | Inpatient (IN) | payer OTHER, MEDICAID ==
[2018-11-14] MEDS ORDERED: LACTATED RINGERS 1,000 ML IV ONE (05:17)
[2018-11-14] MEDS ORDERED: ceFAZolin 2 GM/50 ML 2 GM/50 ML BAG IV SCH (05:30)
[2018-11-14] MEDS: LACTATED RINGERS 1,000 ML IV SCH ×2 (05:30→16:30)
[2018-11-14] MEDS ORDERED: CITRIC ACID/SODIUM CITRATE 15 ML UDC PO ONE (06:45)
--- NOTE | 2018-11-14 06:55 | ANESTHESIA ---
Pre-Anesthesia VS, & Labs - NPO >8 hours - Is Patient ?: Yes - Lab Results Lab results reviewed: Yes <Kali Wiggins - Last Filed: 11/14/18 06:52> <Ibeth Gipson - Last Filed: 11/14/18 07:13> - Diagnosis Prior C/S (Kali Wiggins) Desires sterilizaton (Ibeth Gipson) - Procedure repeat C/S (Kali Wiggins) Bilateral salpingectomy (Ibeth Gipson) Vital Signs: Temp Pulse Resp BP Pulse Ox 36.4 C L 95 16 124/88 H 98 11/14/18 05:46 11/14/18 05:46 11/14/18 05:46 11/14/18 05:46 11/14/18 05:46 Height 5 ft 7.5 in Weight (kg) 85.729 kg Body Mass Index 26.4 Home Medications and Allergies <Kali Wiggins - Last Filed: 11/14/18 06:52> <Ibeth Gipson - Last Filed: 11/14/18 07:13> Active Medications Cefazolin Sodium/Dextrose (Ancef 2 Gm/50 Ml) 2 gm in 50 mls @ 100 mls/hr IV ONCE GAIL Stop: 11/14/18 09:00 Lactated Ringer's (Lr) 1,000 mls @ 125 mls/hr IV .Q8H GAIL Last Admin: 11/14/18 05:30 Dose: 125 mls/hr Baby ASA, PNV (Ibeth Gipson) Allergies/Adverse Reactions: Allergies Allergy/AdvReac Type Severity Reaction Status Date / Time No Known Drug Allergies Allergy Verified 04/04/18 22:44 Anes History & Medical History - Medical History Neuro: reports: Migraines Smoking Status: Never smoker - Surgical History General: Hiatal hernia repair Gynecologic: section <Kali Wiggins - Last Filed: 11/14/18 06:52> - Medical History Cardiovascular: reports: None Pulmonary: reports: None Gastrointestinal: reports: GERD (Controlled with OTC) Urinary: reports: None Musculoskeletal: reports: None Endocrine/Autoimmune: reports: None Blood Disorders: reports: None Psychosocial: reports: No issues indicated - Obstetrical History : 7 Parity: 2 Events: positive: Other (Was evaluated for low lying placenta/possible [place] in [place]. Patient reports scans/evaluation showed placenta had moved and was not over the scar.) <Ibeth Gipson - Last Filed: 11/14/18 07:13> Exam General: Alert, Oriented x3, Cooperative Dental: WNL <Kali Wiggins P - Last Filed: 11/14/18 06:52> General: Alert Mouth Openin Fingerbreadth Neck Mobility: Normal Mallampati classification: II Thyromental Distance: 4-6 cm Respiratory: Lungs clear, Normal breath sounds, No respiratory distress, No accessory muscle use Cardiovascular: Regular rate, Normal S1, Normal S2, No murmurs Mental/Cognitive Status: Alert/Oriented X3, Normal for patient <Ibeth Gipson - Last Filed: 11/14/18 07:13> Plan Anesthesia Type: Spinal Consent for Procedure(s) Verified and Reviewed: Yes Code Status: Attempt Resuscitation ASA classification: 2-Mild systemic disease <Kali Wiggins P - Last Filed: 11/14/18 06:52> Anesthesia Type: Spinal Consent for Procedure(s) Verified and Reviewed: Yes Code Status: Attempt Resuscitation ASA classification: 2-Mild systemic disease Is this case an emergency?: No <Ibeth Gipson - Last Filed: 11/14/18 07:13>
[2018-11-14] MEDS ORDERED: OXYTOCIN/SODIUM CHLORIDE 1,000 ML IV ONE (07:22)
[2018-11-14] MEDS ORDERED: LACTATED RINGERS 400 ML IV ONE (07:44)
[2018-11-14] MEDS ORDERED: MAGNESIUM HYDROXIDE 2,400 MG/30 ML UDC PO PRN (07:51)
[2018-11-14] MEDS ORDERED: diphenhydrAMINE 25 MG CAPSULE PO PRN (07:51)
[2018-11-14] MEDS ORDERED: HYDROCORTISONE 1% CREAM 28 GM TUBE PR PRN (07:51)
[2018-11-14] MEDS ORDERED: ONDANSETRON ODT 4 MG TABLET TL PRN (07:51)
[2018-11-14] MEDS ORDERED: ONDANSETRON 4 MG/2 ML VIAL IVP PRN (07:51)
[2018-11-14] MEDS ORDERED: WITCH HAZEL/GLYCERIN 1 EACH MED..PAD TOP PRN (07:51)
[2018-11-14] MEDS ORDERED: OXYTOCIN/SODIUM CHLORIDE 500 ML IV SCH (08:00)
[2018-11-14] MEDS ORDERED: SODIUM CHLORIDE 0.9% 500 ML IV ONE (08:10)
[2018-11-14] MEDS ORDERED: MORPHINE PF 5 MG/10 ML AMP EP ONE (08:53)
[2018-11-14] MEDS ORDERED: ACETAMINOPHEN 1,000 MG/100 ML 100 ML IV ONE ×2 (08:53→16:19)
[2018-11-14] MEDS ORDERED: ONDANSETRON 4 MG/2 ML VIAL IVP ONE ×2 (08:53→10:00)
[2018-11-14] MEDS ORDERED: fentaNYL 100 MCG/2 ML VIAL IVP ONE (08:53)
[2018-11-14] MEDS ORDERED: KETOROLAC 30 MG/ML VIAL IVP ONE ×2 (08:53→14:50)
[2018-11-14] MEDS ORDERED: PHENYLEPHRINE 50 MG/5 ML VIAL IV ONE (08:53)
--- NOTE | 2018-11-14 09:39 | OPERATIVE REPORT ---
Operative Report - General Admit Date: 11/14/18 Procedure Date: 11/14/18 Planned Procedure: Repeat and bilateral salpingectomy Pre-Op Diagnosis: Prior , desires sterilization Procedure Performed: same Post Op Diagnosis: same - Procedure Note Primary Surgeon: Andrew Secondary Surgeon: Bob Anesthesia Technique: Spinal Pathology: Cord blood for typing IV Fluids (mL): 800 Estimated Blood Loss (mL): 600 Urine Output (mL): 200 Findings: Normal uterus, ovaries, fallopian tubes. NO intraperitoneal scar tissue Liveborn female, apgars 9/9, weight is pending Clear amniotic fluid Complications: none
[2018-11-14] MEDS ORDERED: PROMETHAZINE 25 MG/1 ML VIAL ONE (09:59)
[2018-11-14] MEDS ORDERED: PROMETHAZINE 25 MG/1 ML VIAL IM ONE (10:00)
--- NOTE | 2018-11-14 10:59 | OPERATIVE REPORT ---
DATE OF SERVICE: 11/14/2018 Physician: Gudelia Morales MD PREOPERATIVE DIAGNOSES 1. Intrauterine at 39 weeks. 2. Prior section x2. 3. Desires permanent surgical sterilization. POSTOPERATIVE DIAGNOSES 1. Status post repeat section. 2. Bilateral tubal ligation. PROCEDURES 1. Repeat section, low transverse. 2. Bilateral salpingectomy. SURGEON: Gudelia Morales MD [employer] TECHNICAL LEAD SENIOR DEVELOPER: Jamar Rojas MD ANESTHESIA: Spinal. IV FLUIDS: 800 mL. URINE OUTPUT: 200 mL, clear. COUNTS: Correct x2. COMPLICATIONS: None apparent. DISPOSITION: Stable to the recovery room. PROPHYLAXIS: SCDs and HODA hose to bilateral lower extremities. Two grams of Ancef prior to skin inc ision. SPECIMENS: Umbilical cord blood sent for typing. FINDINGS 1. Clear amniotic fluid. 2. Liveborn female. Weight is pending. Apgars 9 at 1 minute and 9 at 5 minutes. 3. Normal-appearing uterus, ovaries, fallopian tubes, and pelvic peritoneum. COUNSELING: Please see H and P for details. Patient strongly requests tubal ligation, and this was confirmed again on the morning of surgery. DESCRIPTION OF PROCEDURE: Patient was brought to the operating room where she underwent spinal anest hesia. A Brown catheter was placed as well as her sequential compression devices. She was placed in a left tilt. She was prepped and draped in the usual sterile fashion. A scalpel was used to make a Pfannenstiel skin incision in the area of her prior scar. This was sanders ied down to the fascia with a scalpel. Her subcutaneous tissues were very densely scarred. The fasc ia in the midline was entered with a scalpel. The fascial incision was then extended laterally using Mayos. Kochers were placed on the inferior margin of the fascial incision. The fascia was bluntly and sharply dissected off of the underlying rectus. The Kochers were replaced superiorly on that edg e of the fascial margin. This side was much more difficult to dissect off of the underlying rectus. Careful dissection with scalpel, blunt pressure, and Mayos did achieve adequate room without any fas cial trauma. The peritoneum was bluntly entered. The incision was extended by placing incisional tr action. A bladder retractor was placed. A scalpel was used to make an incision in the lower uterine segment. This was carried down until the membranes were encountered. The uterine incision was extended late rally by applying caudal and cranial traction. An Allis clamp was used to rupture the membranes. Th e surgeon's hand was placed in the uterine cavity and the head was elevated and then delivered with the assistance of fundal pressure. There was no nuchal cord. The shoulders and body were easil y delivered. While pressure was made on the uterine incision, the cord was left pulsating for 30 sec onds. During this time, the was warmed, dried, and stimulated. She was very vigorous. After 30 seconds, the umbilical cord was clamped x2 and cut and handed to the team in waiting. Umbilical cord blood was obtained. The placenta was delivered with external uterine massage. There were some additional membranes around the right lower uterine segment that were removed with a ring f orceps. A lap was used to curette the uterine cavity and no further membranes were identified. The uterine incision was closed with a running layer of 0 Vicryl. A second imbricating layer was perform ed. Hemostasis was excellent. Both gutters were packed with a damp lap and there was no return of b lood. The cornua was rotated towards the incision on the patient's left side. The fallopian tubes were gra sped with [place] and the fallopian tube was from the mesosalpinx with a LigaSure until th e level of the cornua was reached, and then the tube was amputated. This was carried forth then on t he contralateral side. Inspection of the uterine incision, fascia, and rectus was hemostatic. There was some scar tissue on the midline of the rectus sheath that I reapproximated with interrupted natalee ress suture. The fascia was closed with a running layer of 0 Vicryl going from end-to-end. The subc utaneous tissues were inspected and no bleeding was seen. Her anatomy was such that her skin was und ermined from the subcutaneous tissues with Bovie on cut. The subcutaneous tissues were reapproximated with interrupted sutures of 4-0 Vicryl. The skin incisi on was then closed with a running subcuticular suture of 4-0 Monocryl. The wound VAC was applied. T he fundus was very firm, 4 cm below the umbilicus and deviated to the maternal right side. Fundal ma ssage yielded a normal amount of blood and clot. The patient tolerated the procedure well. There we re no apparent complications. She returned to her delivery room in good condition. TD: 11/14/2018 10:00
[2018-11-14] MEDS: NALBUPHINE 10 MG/ML AMP IVP SCH ×2 (13:22→17:28)
[2018-11-14] MEDS: SODIUM CHLORIDE FLUSH 0.9% 10 ML SYRINGE IVP SCH ×3 (13:22→18:59)
[2018-11-14] MEDS: SIMETHICONE CHEW 80 MG TABLET PO SCH ×2 (13:35→21:38)
[2018-11-14] MEDS: DOCUSATE SODIUM 100 MG CAPSULE PO SCH ×2 (13:35→21:38)
[2018-11-14] MEDS: ACETAMINOPHEN 500 MG TABLET PO SCH ×2 (13:36→16:20)
[2018-11-14] MEDS: IBUPROFEN 600 MG TABLET PO SCH ×2 (13:36→16:20)
[2018-11-14] MEDS ORDERED: HYDROmorphone 1 MG/ML CARPUJECT IVP PRN (14:37)
[2018-11-14] MEDS ORDERED: ACETAMINOPHEN 1,000 MG/100 ML 100 ML IV PRN (17:55)
[2018-11-14] MEDS ORDERED: METOCLOPRAMIDE 10 MG/2 ML VIAL IVP PRN (17:56)
[2018-11-14] MEDS ORDERED: KETOROLAC 30 MG/ML VIAL IVP PRN (17:56)
[2018-11-15 07:28] LABS: BASOPHILS % (AUTO) 0.4 %; EOSINOPHILS # (AUTO) 0.1 10^3/uL (0.0-0.7); EOSINOPHILS % (AUTO) 1.5 %; HGB - HEMOGLOBIN 10.6 g/dL (12.0-16.0); LYMPHOCYTES # (AUTO) 1.2 10^3/uL (1.5-3.5); MEAN CORPUSCULAR HEMOGLOBIN 29.9 pg (27.0-31.0); MEAN CORPUSCULAR HGB CONC 34.4 g/dL (32.0-36.0); MEAN CORPUSCULAR VOLUME 86.9 fL (81.0-99.0); MEAN PLATELET VOLUME 8.6 fL (7.9-10.8); MONOCYTES # (AUTO) 0.4 10^3/uL (0.0-1.0); MONOCYTES % (AUTO) 5.3 %; NEUTROPHILS # (AUTO) 5.8 10^3/uL (1.5-6.6); NEUTROPHILS % (AUTO) 76.8 %; PLT - PLATELET COUNT 155 10^3/uL (130-450); RED BLOOD COUNT 3.54 10^6/uL (4.20-5.40); RED CELL DISTRIBUTION WIDTH 13.6 % (12.0-15.0); WHITE BLOOD COUNT 7.6 x10^3/uL (4.8-10.8)
[2018-11-15] MEDS: DOCUSATE SODIUM 100 MG CAPSULE PO SCH ×2 (08:26→21:31)
[2018-11-15] MEDS: SIMETHICONE CHEW 80 MG TABLET PO SCH ×3 (08:26→18:19)
[2018-11-15] MEDS: SODIUM CHLORIDE FLUSH 0.9% 10 ML SYRINGE IVP SCH ×2 (08:26→08:27)
[2018-11-15] MEDS: FAMOTIDINE 20 MG/2 ML VIAL IVP SCH ×2 (08:26→08:28)
[2018-11-15] MEDS: oxyCODONE 5 MG TABLET PO PRN ×4 (08:27→22:25)
--- NOTE | 2018-11-15 09:15 | PROVIDER PROGRESS NOTE ---
Subjective - Subjective Subjective: 03/16 pain but coping well. Hurts to move in bed. going well with latch. No heavy VB. No urination yet but catheter came out recently. Able to eat this am. AVSS Alert, smiling, cuddling baby, NAD Abd soft, appropriately tender, ND Incision covered by vac, surrounding area without erythema Legs symmetric without tenderness, edema, or cords. Hct 30 A/P: P3 POD #1 s/p scheduled repeat with bilat salpingectomy. Doing well today. Start oxycodone. Routine care. SCDs while in bed due to MTHFR mutation. Objective - Vital Signs/Intake & Output Vital Signs: Vital Signs x48h Temp Pulse Resp BP Pulse Ox 11/15/18 05:00 98.6 F 79 18 118/69 11/15/18 03:17 18 11/15/18 02:00 98.6 F 75 18 118/68 98 Intake & Output: Intake & Output 11/12/18 11/13/18 11/14/18 11/15/18 23:59 23:59 23:59 23:59 Intake Total 1600 1850 Output Total 1900 1350 Balance -300 500 - Lab Results Fish Bones: 11/15/18 06:40 Other Labs: Lab Results x24hrs 11/15/18 Range/Units 06:40 WBC 7.6 (4.8-10.8) x10^3/uL RBC 3.54 L (4.20-5.40) 10^6/uL Hgb 10.6 L (12.0-16.0) g/dL Hct 30.8 L (37.0-47.0) % MCV 86.9 (81.0-99.0) fL MCH 29.9 (27.0-31.0) pg MCHC 34.4 (32.0-36.0) g/dL RDW 13.6 (12.0-15.0) % Plt Count 155 (130-450) 10^3/uL MPV 8.6 (7.9-10.8) fL Neut # (Auto) 5.8 (1.5-6.6) 10^3/uL Lymph # (Auto) 1.2 L (1.5-3.5) 10^3/uL [place] # (Auto) 0.4 (0.0-1.0) 10^3/uL Eos # (Auto) 0.1 (0.0-0.7) 10^3/uL Baso # (Auto) 0.0 (0.0-0.1) 10^3/uL Absolute Nucleated RBC 0.00 x10^3/uL Nucleated RBC % 0.0 /100WBC
[2018-11-15] MEDS: ACETAMINOPHEN 500 MG TABLET PO SCH ×3 (09:20→22:24)
[2018-11-15] MEDS: IBUPROFEN 600 MG TABLET PO SCH ×2 (12:32→18:19)
[2018-11-16] MEDS: IBUPROFEN 600 MG TABLET PO SCH ×4 (01:01→20:28)
[2018-11-16] MEDS: oxyCODONE 5 MG TABLET PO PRN ×6 (02:14→20:28)
[2018-11-16] MEDS: ACETAMINOPHEN 500 MG TABLET PO SCH ×2 (06:05→14:11)
[2018-11-16] MEDS: SIMETHICONE CHEW 80 MG TABLET PO SCH ×3 (08:12→18:18)
[2018-11-16] MEDS: DOCUSATE SODIUM 100 MG CAPSULE PO SCH (08:12)
--- NOTE | 2018-11-16 16:44 | PROVIDER PROGRESS NOTE ---
Subjective - Subjective Subjective: Pain is well-controlled but the meds make her sleepy. Brestfeeding going better today but baby lost 8%. No abnormal bleeding. + flatus. No nausea or vomiting. Feels like it takes longer to urinate and the sensation of fullness and of empty are not right. AVSS Alert, smiling, NAD Abd soft, appropriately tender, ND Incision covered by vac, surrounding area without erythema Legs symmetric without tenderness, edema, or cords. Hct 30 PVR 30 and 90 A/P: P3 POD #2 s/p scheduled repeat with bilat salpingectomy. Doing well today. Routine care. Sensation of abnormal voiding sensations, PVR is normal, pt reassured. SCDs while in bed due to MTHFR mutation. Anticipate discharge tomorrow. Objective - Vital Signs/Intake & Output Vital Signs: Vital Signs x48h Temp Pulse Resp BP Pulse Ox 11/16/18 12:15 97.7 F 80 18 117/80 97 Intake & Output: Intake & Output 11/13/18 11/14/18 11/15/18 11/16/18 23:59 23:59 23:59 23:59 Intake Total 1600 2950 2800 Output Total 1900 3250 Balance -300 -300 2800 - Lab Results Fish Bones: 11/15/18 06:40
[2018-11-17] MEDS: ACETAMINOPHEN 500 MG TABLET PO SCH ×2 (00:53→09:21)
[2018-11-17] MEDS: DOCUSATE SODIUM 100 MG CAPSULE PO SCH ×2 (01:19→10:13)
[2018-11-17] MEDS: oxyCODONE 5 MG TABLET PO PRN ×3 (03:12→09:22)
[2018-11-17] MEDS: IBUPROFEN 600 MG TABLET PO SCH ×2 (03:57→10:13)
[2018-11-17 08:31] VITALS: BP 126/87
[2018-11-17] MEDS: SIMETHICONE CHEW 80 MG TABLET PO SCH (09:21)
--- NOTE | 2018-11-17 10:08 | Discharge Plan ---
Discharge Plan Disposition: 01 Home, Self Care Condition: Good Diet: Regular Activity Restrictions: Pelvic rest for 6w, no lifting more than 10 pounds Shower Restrictions: Yes (do not get the pump wet) Driving Restrictions: Yes (not when taking any oxycodone) No Smoking: If you smoke, Please STOP! Call for help. Follow-up with: Gudelia Morales MD [Provider Admit Priv/Credential] - 1 Week
[2018-11-17] MEDS ORDERED: MEASLES,MUMPS & RUBELLA VACC 0.5 ML VIAL SUBQ ONE (11:35)
--- NOTE | 2018-11-17 11:49 | Labor Flowsheet ---
Labor Flowsheet Datetime Report Generated by CPN: 11/17/2018 11:49 Datetime: 11/16/2018 05:45 VAGINAL EXAM Membranes Ruptured Date/Time: 11/14/2018 08:24
--- NOTE | 2018-11-19 08:31 | DISCHARGE SUMMARY ---
Physician: Gudelia Morales MD DATE OF ADMISSION: 11/14/2018 DATE OF DISCHARGE: 11/17/2018 ADMISSION DIAGNOSES 1. Prior section. 2. Desires sterilization. 3. Rubella nonimmune. POSTOPERATIVE DIAGNOSES 1. Status post section. 2. Status post sterilization. 3. Rubella nonimmune, received MMR vaccine prior to discharge. OPERATIONS AND PROCEDURES: On 11/14/2018, repeat section and bilateral salpingectomy. ESTIMATED BLOOD LOSS: 600 mL. FINDINGS: A live born female, Apgars 9 and 9. Maternal anatomy was normal with no adhesions noted. She was 39 weeks at the time of delivery. HOSPITAL COURSE: Patient was admitted for her scheduled section. She had a difficult time with nausea and vomiting for the first 18 hours postoperatively. She had improvement after receiving IV fluids, Zofran, Phenergan, and Reglan. For the rest of her hospitalization, she had no further e mesis and was tolerating a regular diet very well. She also had a sensation of a change in her bladd er function. She reported a decreased ability to feel when she is full and whether or not she is com pletely emptying. Her postvoid residual checks were normal, and she was reassured that this is a nor mal postoperative sensation. Otherwise by postoperative day 3, she was eating, ambulating, and urina ting without difficulties. She was without problems with her latch. She had no proble ms with her breasts. She was continuing to have postoperative pain that was not increasing with time . Her bleeding was scant. Her mood was good. DISCHARGE PHYSICAL EXAMINATION VITAL SIGNS: Afebrile with normal vital signs. GENERAL: Alert and smiling, in no apparent distress. ABDOMEN: Soft, appropriately tender and nondistended. Incision covered by the wound VAC without silvia rounding erythema. Fundus firm and at the umbilicus. LOWER EXTREMITIES: Without clubbing, cyanosis, or edema. DISCHARGE MEDICATIONS 1. Oxycodone p.r.n. pain, #25, no refills. 2. Ibuprofen p.r.n. pain. 3. Tylenol p.r.n. pain. 4. Colace p.r.n. to soften stool. 5. Continue vitamins. DISCHARGE DISPOSITION: Home. CONDITION: Good. FOLLOWUP: Followup in 1 week with the clinic nurse for wound VAC removal. TD: 11/17/2018 10:21
== END 2018-11-17 11:12 | disposition home or self-care (01) | DRG 785 ==
LOC: FBP 05:01
PROVIDERS: ADMIT Obstetrics & Gynecology; ATTEND Obstetrics & Gynecology
PROC: 10D00Z1 Extraction of Products of Conception, Low, Open Approach (ICD-10-PCS; 2018-11-14)
PROC: 0UT70ZZ Resection of Bilateral Fallopian Tubes, Open Approach (ICD-10-PCS; principal; 2018-11-14 07:30)
DX: O34.211 Maternal care for low transverse scar from previous cesarean delivery (principal); Z30.2 Encounter for sterilization; Z3A.39 39 weeks gestation of pregnancy; Z37.0 Single live birth
CPT/HCPCS: 36415; 85025; A9270; J0131; J0690; J1170; J2300; J2765; J7120

== ENCOUNTER 2018-12-03 13:12 | Emergency (ER) | payer OTHER, MEDICAID ==
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
[2018-12-03 16:45] VITALS: BP 107/83
== END 2018-12-03 16:45 | disposition home or self-care (01) ==
LOC: ED 13:12
DX: S16.1XXA Strain of muscle, fascia and tendon at neck level, initial encounter (principal); V43.52XA Car driver injured in collision with other type car in traffic accident, initial encounter; Y92.488 Other paved roadways as the place of occurrence of the external cause; F17.200 Nicotine dependence, unspecified, uncomplicated
CPT/HCPCS: 99283

== ENCOUNTER 2019-03-20 20:12 | Emergency (ER) | payer MEDICAID, OTHER ==
--- NOTE | 2019-03-20 20:52 | ED Physician Documentation ---
History of Present Illness - Stated complaint Stated Complaint: FEM - Chief complaint Chief Complaint: Abd Pain - Additonal information Additional information: This is a 23-year-old female with a history of multiple C-sections, who presents with abnormal vaginal discharge. Patient states that she has had some intermittent spotting for the last 2 weeks, which is abnormal for her, she did see her primary care provider for this and had labs drawn which reportedly over the last 3 days she has had increased vaginal discharge which she says is copious amounts of yellowish discharge. She has a slight bit of vaginal itching, no pain. She is monogamous with her and denies any concern for sexually transmitted diseases. She has some mild suprapubic discomfort, no specific pain. She denies nausea or vomiting, no fever, no genital lesions noted. Review of Systems Constitutional: denies: Fever Throat: denies: Oral lesions / sores Cardiac: denies: Chest pain / pressure GI: reports: Abdominal Pain. 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: section - Present Medications Home Medications: Ambulatory Orders Medication Instructions Recorded Confirmed Ondansetron Odt [Zofran] 4 mg TL Q6H PRN #15 tablet 03/15/18 03/19/18 Metoclopramide [Reglan] 10 mg PO Q6H PRN #30 tablet 03/19/18 Metronidazole [Flagyl] 500 mg PO BID #20 tablet 03/20/19 - Allergies Allergies/Adverse Reactions: Allergies Allergy/AdvReac Type Severity Reaction Status Date / Time No Known Drug Allergies Allergy Verified 04/04/18 22:44 - Social History Does the pt smoke?: Yes Smoking Status: Current every day smoker Does the pt drink ETOH?: Yes Does the pt have substance abuse?: No - Immunizations Immunizations are current?: Yes - POLST Patient has POLST: No PD ED PE NORMAL - Vitals Vital signs reviewed: Yes - General General: Alert and oriented X 3, No acute distress - HEENT HEENT: PERRL - Cardiac Cardiac: Strong equal pulses - Respiratory Respiratory: Clear bilaterally - Abdomen Abdomen: Normal bowel sounds, Non distended, Other (Mild suprapubic tenderness, no RLQ tenderness, no RUQ tenderness. 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 On speculum exam there is a moderate amount of clear yellow to clear green discharge. The cervix is normal in appearance without signs of cervicitis or inflammation. There is no blood visible, no lesions of the vaginal mucosa.) - Derm Derm: Warm and dry - Extremities Extremities: No deformity - Neuro Neuro: Alert and oriented X 3 - Psych Psych: Normal mood, Normal affect Results - Vitals Vitals: Vital Signs - 24 hr 03/20/19 03/20/19 03/20/19 20:15 20:48 22:25 Temperature 36.5 C 36.5 C Heart Rate 64 75 72 Respiratory 14 16 16 Rate Blood Pressure 124/84 H 117/87 H 123/88 H O2 Saturation 99 96 98 03/20/19 23:56 Temperature 36.7 C Heart Rate 75 Respiratory 16 Rate Blood Pressure 119/89 H O2 Saturation 97 Oxygen O2 Source Room air - Labs Labs: Microbiology 03/20/19 22:38 Wet Prep - Final Vaginal Laboratory Tests 03/20/19 03/20/19 21:00 22:10 Urine Color YELLOW Urine Clarity CLEAR Urine pH 7.0 Ur Specific [place] 1.020 Urine Protein TRACE Urine Glucose (UA) NEGATIVE Urine Ketones NEGATIVE Urine Occult Blood SMALL H Urine Nitrite NEGATIVE Urine Bilirubin NEGATIVE Urine Urobilinogen 0.2 (NORMAL) Ur Leukocyte Esterase NEGATIVE Urine RBC 6-10 H Urine WBC 0-3 Ur Squamous Epith Cells RARE Squamous Urine Bacteria None Seen Ur Microscopic Review INDICATED Urine Culture Comments NOT INDICATED Urine HCG, Qual NEGATIVE Chlam trachomat DNA PCR NEGATIVE N.gonorrhoeae DNA (PCR) NEGATIVE T. vaginalis (PCR) NEGATIVE PD MEDICAL DECISION MAKING - ED course Complexity details: considered differential (Bacterial vaginosis, yeast infection,UTI, sexually transmitted infection, trichomonas, abnormal uterine bleeding, PID) ED course: On examination patient is well-appearing, she has a benign abdominal exam with no significant tenderness. Her urine is negative for infection. Pelvic exam was performed, no signs of PID or cervicitis, she does have a moderate amount of greenish vaginal discharge in the vaginal vault. Swabs are taken, this shows clue cells concerning for bacterial vaginosis, no trichomonas or yeast. GC chlamydia was also sent. Patient is monogamous with her , denies concern for STD, and after discussion with the patient we will hold on empiric treatment, she will be called if her results are positive. We will treat with a course of Flagyl, if she has worsening of her symptoms, fever, or Worsening abdominal pain she will return to the emergency department. At this time given her reassuring vital signs and exam, I highly doubt acute abdominal pathology. Reviewed return precautions and patient was discharged home. Departure - Departure Disposition: Home, Self Care Clinical Impression: Bacterial vaginosis Condition: Good Instructions: ED Vaginosis Bacterial Follow-Up: FERNANDO PALMER MD [Primary Care Provider] - Within 1 week (For follow up on symptoms) Prescriptions: Metronidazole [Flagyl] 500 mg PO BID #20 tablet Comments: You were seen today for increased vaginal discharge. It appears you may have bacterial vaginosis. The other swabs we sent today are in process, you will be called if they are positive. Please take the antibiotic prescribed, if you are having continued symptoms it is important that you follow-up as soon as possible your primary care provider. If you have increasing abdominal pain, vomiting, fever, or other concerning symptoms please return to the emergency department Discharge Date/Time: 03/20/19 23:57
[2019-03-20 21:10] LABS: BILIRUBIN,URINE NEGATIVE (NEGATIVE); CLARITY,URINE CLEAR (CLEAR); GLUCOSE, URINE (UA) NEGATIVE (NEGATIVE); KETONES,URINE (UA) NEGATIVE (NEGATIVE); LEUKOCYTE ESTERASE, URINE NEGATIVE (NEGATIVE); NITRITE,URINE NEGATIVE (NEGATIVE); OCCULT BLOOD,URINE SMALL (NEGATIVE); PROTEIN,URINE TRACE mg/dL (NEGATIVE); UROBILINOGEN,URINE 0.2 (NORMAL) E.U./dL (NORMAL)
[2019-03-20 21:12] LABS: HCG UR QUAL NEGATIVE
[2019-03-20 21:36] LABS: BACTERIA,URINE None Seen /HPF (None Seen); SQUAMOUS EPITHELIAL CELL,UR RARE Squamous (<= Few)
[2019-03-20] MEDS ORDERED: metroNIDAZOLE 250 MG TABLET PO STA (23:37)
[2019-03-20 23:57] VITALS: BP 119/89
[2019-03-21 02:00] LABS: TRICHOMONAS VAGINALIS DNA NEGATIVE (NEGATIVE)
== END 2019-03-20 23:57 | disposition home or self-care (01) ==
LOC: ED 20:12
DX: N76.0 Acute vaginitis (principal); F17.200 Nicotine dependence, unspecified, uncomplicated
CPT/HCPCS: 81001; 81025; 87210; 87491; 87591; 87661; 99283; 99284; A9270; 81003; 87086